=== PATIENT | female | born 1985 | race Caucasian/White ===

== ENCOUNTER → 2020-06-23 | Outpatient (CLI) | payer OTHER ==
--- NOTE | 2020-06-23 15:53 | US ---
EXAMINATION TYPE: US gallbladder DATE OF EXAM: 06/23/2020 COMPARISON: NONE CLINICAL HISTORY: R10.11 RUQ PAIN. Intermittent RUQ pain x 6 months, gotten worse in the past month EXAM MEASUREMENTS: Liver Length: 16.1 cm Gallbladder Wall: 0.2 cm CBD: 0.3 cm Right Kidney: 8.9 x 4.5 x 4.1 cm Pancreas: visualized portions wnl, limited by overlying midline bowel gas Liver: wnl Gallbladder: wnl Evidence for sonographic Cabezas's sign: yes CBD: visualized portions wnl, limited by overlying bowel gas Right Kidney: wnl IMPRESSION: 1. Normal right upper quadrant ultrasound as visualized.
== END | disposition home or self-care (01) ==
LOC: RADUSWWP 12:29
PROVIDERS: ATTEND Family Medicine
DX: R10.11 Right upper quadrant pain (principal)
CPT/HCPCS: 76705